=== PATIENT | female | born 2000 | race African-American/Black ===

== ENCOUNTER 2024-07-19 09:43 | Emergency (ER) | payer BC ==
[2024-07-19] MEDS ORDERED: Ondansetron PF 4 MG/2 ML Vial ONE ×2 (10:21→12:23)
[2024-07-19 10:46] LABS: #Basophils 0.03 10x3/uL (0.0-0.2); #Eosinphils 0.02 10x3/uL (0.0-0.5); #Monocytes 0.89 10x3/uL (0.0-1.1); #Neutrophils 14.31 10x3/uL (1.5-8.4); %Basophils 0.2 % (0.0-2.0); %Eosinophils 0.1 % (0.0-6.0); %Lymphocytes 10.7 % (18.0-47.0); %Monocytes 5.2 % (0.0-10.0); %Neutrophils 83.3 % (40.0-75.0); Hematocrit 37.2 % (34.9-44.5); Hemoglobin 12.6 g/dL (12.0-15.5); Mean Corpuscular HGB CONC 33.9 g/dL (32.0-36.0); Mean Corpuscular Volume 85.5 fL (81.6-98.3); Mean Platelet Volume 9.5 fL (7.4-10.4); Platelet Count 370 10x3/uL (150-450); RBC Distribution Width 13.9 % (11.5-14.5); Red Blood Cell (RBC) Count 4.35 10x6/uL (3.90-5.03); White Blood Cell (WBC) Count 17.2 10x3/uL (3.5-10.5)
[2024-07-19 10:50] LABS: Bilirubin Neg (Negative); Blood, Urine 25 (Negative); Glucose, Urine (Dipstick) Normal (Negative); Ketone, Urine 150 mg/dL (Negative); Leukocyte Negative (Negative); Nitrite Negative (Negative); Protein, Urine (Dipstick) 30 mg/dl (Neg-Trace); Specific Gravity, Urine 1.025 (1.005-1.030); Urobilinogen Normal mg/dL (Less than 2)
[2024-07-19 10:54] LABS: Clarity Slightly Cloudy (Clear)
[2024-07-19 10:54] LABS: BHCG - Serum POSITIVE (NEGATIVE); Pregs Control Background? CLEAR/WHITE (CLR/WHITE); Pregs Control Bar Appear? YES (CONTROL BAR)
[2024-07-19] MEDS ORDERED: Ketorolac Tromethamine 30 MG (1 mL) VIAL ONE (10:56)
[2024-07-19 10:58] LABS: Amphetamine Not Detected (NotDetected); Barbiturates Screen Not Detected (NotDetected); Benzodiazepine Screen Not Detected (NotDetected); Cocaine Metabolite Screen Not Detected (NotDetected); Methadone Not Detected (NotDetected); Methamphetamine Not Detected (NotDetected); Opiate Screen Not Detected (NotDetected); Oxycodone Screen Not Detected (NotDetected); Phencyclidine (PCP) Not Detected (NotDetected); THC/Cannabinoid Screen Detected (NotDetected); Tricyclic Screen Not Detected (NotDetected)
[2024-07-19 11:01] LABS: CAUTI Indications for Culture Pelvic or flank pain; RBC/HPF 0-3 HPF (0-3)
[2024-07-19 11:02] LABS: ALT (SGPT) 8 U/L (8-55); AST (SGOT) 13 U/L (5-34); Albumin 3.9 g/dL (3.5-5.0); Alkaline Phosphatase 55 U/L (40-110); Anion Gap 17 mmol/L (10-20); BUN (Urea Nitrogen) 9 mg/dL (7.0-18.7); Bilirubin, Total 0.3 mg/dL (0.2-1.2); Calc. Creatinine Clearance 0 mL/min (70-130); Calcium 10.6 mg/dL (7.8-10.44); Carbon Dioxide 19 mmol/L (22-29); Chloride 104 mmol/L (98-107); Estimated GFR 108; Globulin 4.3 g/dL (2.4-3.5); Glucose 118 mg/dL (70-105); Lipase 11 U/L (8-78); Magnesium 1.8 mg/dL (1.6-2.6); Potassium 3.7 mmol/L (3.5-5.1); Protein, Total 8.2 g/dL (6.0-8.3); Sodium 136 mmol/L (136-145)
[2024-07-19 11:02] LABS: Bacteria/HPF 1+ HPF (None Seen)
[2024-07-19 11:03] LABS: Urine Culture Reflex No No
[2024-07-19] MEDS ORDERED: Acetaminophen 500 MG TAB ONE (12:23)
== END 2024-07-19 15:20 | disposition home or self-care (01) ==
LOC: CSHERS 09:43
DX: O21.0 Mild hyperemesis gravidarum (principal); Z3A.00 Weeks of gestation of pregnancy not specified
CPT/HCPCS: 80053; 80306; 81001; 83690; 83735; 84702; 84703; 85025; 96361; 96374; 96376; J1885; J2405